=== PATIENT | male | born 1945 | race Two or more races ===

== ENCOUNTER → 2019-06-17 | Outpatient (CLI) | payer MEDICARE ==
--- NOTE | 2019-06-17 15:05 | REP ---
Clinical: Acute upper respiratory tract infection . Comparison: None . Technique: PA and lateral. Findings: The mediastinum and cardiac silhouette are normal. The lung saab are clear and without acute consolidation, effusion, or pneumothorax. The skeletal structures demonstrate age-related osteopenia and degenerative changes. Impression: 1. No acute cardiopulmonary process. Electronically Signed by Jayro Lambert MD 06/17/2019 02:55 P
== END ==
LOC: M CLY 14:32
PROVIDERS: ATTEND Physician Assistant
DX: J22 Unspecified acute lower respiratory infection (principal)
CPT/HCPCS: 71046; G0463

== ENCOUNTER 2020-03-27 08:53 | Emergency (ER) | payer MEDICARE ==
[~2020-03-27] VITALS: Ht 172.7 cm; Wt 85.5 kg
[2020-03-27] MEDS ORDERED: GLUC1CAP28 PO (09:01)
[2020-03-27] MEDS ORDERED: B-12100T2 PO (09:01)
[2020-03-27] MEDS ORDERED: FOLI1TAB11 PO (09:03)
[2020-03-27] MEDS ORDERED: VITAD1000T PO (09:03)
[2020-03-27] MEDS ORDERED: PANTOPRAZOLE 40MG VIAL (C9113 PER 1) IV ONE (09:30)
[2020-03-27] MEDS ORDERED: NS 1,000 ML IV ONE (09:30)
[2020-03-27 09:46] LABS: BASO # 0.1 10^3/uL (0.0-0.2); BASO % 0.8 % (0.0-1.0); EOS % 0.3 % (0.0-3.0); HEMATOCRIT 23.6 % (42.0-52.0); HEMOGLOBIN 8.2 g/dl (13.5-17.5); LYMPH # 1.7 10^3/uL (1.5-5.0); LYMPH % 18.4 % (24.0-44.0); MEAN CORPUSCULAR HEMOGLOBIN 34.5 pg (27.0-33.0); MEAN CORPUSCULAR HGB CONC 34.7 g/dl (32.0-36.5); MEAN CORPUSCULAR VOLUME 99.2 fl (80.0-96.0); MONO # 0.7 10^3/uL (0.0-0.8); MONO % 7.6 % (0.0-5.0); NEUTROPHILS # 6.6 10^3/uL (1.5-8.5); NEUTROPHILS % 72.2 % (36.0-66.0); PLATELET COUNT, AUTOMATED 193 10^3/uL (150-450); RED BLOOD COUNT 2.38 10^6/uL (4.30-6.10); WHITE BLOOD COUNT 9.1 10^3/uL (4.0-10.0)
[2020-03-27 09:56] LABS: INR 1.14; PROTHROMBIN TIME 14.3 SECONDS (11.8-14.0)
[2020-03-27 09:57] LABS: PARTIAL THROMBOPLASTIN TIME 25.1 SECONDS (25.0-38.4)
[2020-03-27] MEDS ORDERED: NS 1,560 ML in IV 1 EA IV ONE (10:00)
[2020-03-27 10:19] LABS: ALBUMIN 2.9 GM/DL (3.2-5.2); ALT/SGPT 19 U/L (12-78); AMYLASE 48 U/L (25-115); BILIRUBIN,DIRECT < 0.1 MG/DL (0.0-0.2); BILIRUBIN,TOTAL 0.3 MG/DL (0.2-1.0); CK-MB VALUE MASS 1.5 NG/ML (<3.6); CPK CREATINE PHOSPHOKINASE 34 U/L (39-308); ETHYL ALCOHOL (ETHANOL) < 0.003 % (0.000-0.010); LIPASE 131 U/L (73-393); MB/CK RELATIVE INDEX 4.41 (< OR =4); TOTAL PROTEIN 5.8 GM/DL (6.4-8.2); TROPONIN I < 0.02 NG/ML (< 0.10)
[2020-03-27] MEDS ORDERED: ONDANSETRON 4MG/2ML VIAL IV ONE (11:00)
[2020-03-27 13:32] VITALS: BP 115/58
--- NOTE | 2020-03-28 16:00 | ECGEPIP ---
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
== END 2020-03-27 13:36 | disposition short-term general hospital (02) ==
LOC: M ED 08:53
DX: K92.2 Gastrointestinal hemorrhage, unspecified (principal); R00.0 Tachycardia, unspecified; K21.9 Gastro-esophageal reflux disease without esophagitis; F10.10 Alcohol abuse, uncomplicated; Z79.899 Other long term (current) drug therapy; Z88.8 Allergy status to other drugs, medicaments and biological substances
CPT/HCPCS: 36415; 80047; 80076; 82150; 82550; 82553; 83605; 83690; 84484; 85025; 85610; 85730; 86850; 86900; 86901; 87040; 93005; 93041; 96361; 96374; 96375; 99285; C9113; G0480; J2405

== ENCOUNTER 2021-04-26 04:18 | Emergency (ER) | payer MEDICARE ==
[~2021-04-26] VITALS: Ht 172.7 cm; Wt 82.3 kg
[~2021-04-26 04:18] MED LIST: B-12100T2 PO; D31000TA2 PO; FOLI1TAB11 PO; GLUC500C65 PO
[2021-04-26 04:49] LABS: BASO # 0.1 10^3/uL (0.0-0.2); BASO % 0.5 % (0.0-1.0); EOS # 0.3 10^3/uL (0.0-0.5); EOS % 3.1 % (0.0-3.0); HEMATOCRIT 44.7 % (42.0-52.0); HEMOGLOBIN 15.3 g/dl (13.5-17.5); LYMPH # 1.8 10^3/uL (1.5-5.0); LYMPH % 18.2 % (24.0-44.0); MEAN CORPUSCULAR HEMOGLOBIN 30.7 pg (27.0-33.0); MEAN CORPUSCULAR HGB CONC 34.2 g/dl (32.0-36.5); MEAN CORPUSCULAR VOLUME 89.6 fl (80.0-96.0); MONO % 9.9 % (2.0-8.0); NEUTROPHILS # 6.9 10^3/uL (1.5-8.5); NEUTROPHILS % 68.1 % (36.0-66.0); PLATELET COUNT, AUTOMATED 186 10^3/uL (150-450); RED BLOOD COUNT 4.99 10^6/uL (4.30-6.10); WHITE BLOOD COUNT 10.1 10^3/uL (4.0-10.0)
[2021-04-26 05:20] LABS: ALBUMIN 3.7 GM/DL (3.2-5.2); ALT/SGPT 27 U/L (12-78); BILIRUBIN,DIRECT 0.2 MG/DL (0.0-0.2); BILIRUBIN,TOTAL 0.7 MG/DL (0.2-1.0); BLOOD UREA NITROGEN 13 MG/DL (7-18); CALCIUM LEVEL 9.2 MG/DL (8.8-10.2); CARBON DIOXIDE LEVEL 26 MEQ/L (21-32); CHLORIDE LEVEL 109 MEQ/L (98-107); CK-MB VALUE MASS < 1.0 NG/ML (<3.6); CPK CREATINE PHOSPHOKINASE 80 U/L (39-308); GLOMERULAR FILTRATION RATE > 60.0 (>42); GLUCOSE, FASTING 92 MG/DL (70-100); MB/CK RELATIVE INDEX 1.25 (< OR =4); POTASSIUM SERUM 4.5 MEQ/L (3.5-5.1); SODIUM LEVEL 142 MEQ/L (136-145); TOTAL PROTEIN 7.1 GM/DL (6.4-8.2); TROPONIN I < 0.02 NG/ML (< 0.10)
[2021-04-26 05:23] LABS: RSV AMPLIFICATION NEGATIVE (NEGATIVE)
[2021-04-26] MEDS ORDERED: IPRATROPIUM 0.5MG/ALBUTEROL 2.5MG INH SOL UD 3ML (DUONEB) NEB ONE (05:45)
[2021-04-26] MEDS ORDERED: methylPREDNISolone 125MG 2ML VIAL IV ONE (05:45)
--- NOTE | 2021-04-26 08:04 | REPVR ---
PROCEDURE INFORMATION: Exam: XR Chest Exam date and time: 04/26/2021 5:15 AM Age: 75 years old Clinical indication: Cough; Additional info: Dyspnea/cough TECHNIQUE: Imaging protocol: XR of the chest. Views: 1 view. COMPARISON: CR CHEST 2 VIEW 06/17/2019 2:42 PM FINDINGS: Lungs: The lungs are clear. Pleural spaces: No pleural effusions or pneumothorax identified. Heart/Mediastinum: The heart is enlarged. Bones/joints: There are mild deformities of multiple ribs on the right side, also seen previously, likely the sequela of previous, healed fractures. IMPRESSION: 1. Cardiomegaly. 2. No evidence of acute pleural or parenchymal disease. Electronically signed by: Flaquita Bloom On 04/26/2021 08:03:33 AM
--- NOTE | 2021-04-26 08:30 | ECGEPIP ---
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
[2021-04-26 09:11] VITALS: O2SAT 92
[2021-04-26] MEDS ORDERED: VENTAER INH (09:25)
[2021-04-26] MEDS ORDERED: PRED20TA PO (09:26)
[2021-04-26 09:34] VITALS: BP 132/72
== END 2021-04-26 09:45 | disposition home or self-care (01) ==
LOC: M ED 04:18
DX: J06.9 Acute upper respiratory infection, unspecified (principal); I51.7 Cardiomegaly; Z79.899 Other long term (current) drug therapy; Z88.8 Allergy status to other drugs, medicaments and biological substances
CPT/HCPCS: 71045; 80048; 80076; 82550; 82553; 84484; 85025; 87631; 93005; 93041; 94640; 94760; 96374; 99284; J2930